=== PATIENT | female | born 1980 | race Caucasian/White ===

== ENCOUNTER 2019-05-19 16:31 | Emergency (ER) | payer OTHER ==
[~2019-05-19] VITALS: Ht 152.4 cm; Wt 69.1 kg
[2019-05-19] MEDS ORDERED: KETOROLAC TROMETHAMINE 10 MG TABLET PO STA (16:57)
[2019-05-19] MEDS ORDERED: MAG HYDROX/ALUMINUM HYD/SIMETH 30 ML ORAL.SUSP PO STA (16:57)
[2019-05-19] MEDS ORDERED: LIDOCAINE 2% VISCOUS 15 ML SOLUTION. SWSW STA (16:57)
[2019-05-19 16:59] VITALS: BP 118/77
[2019-05-19] MEDS ORDERED: CLIN150C14 PO (17:05)
--- NOTE | 2019-05-19 17:06 | PHYS DOC ---
Adult General Chief Complaint Chief Complaint: FACE PROBLEM [facility] HPI Patient is a 38 year old female who presents with left-sided face pain has been ongoing since yesterday. The patient states that she's been having tooth pain periodically on her upper teeth. Patient rates her pain as 8 out of 10 in pramod rity sharp. The patient denies any medical history. Denies any fevers. Complete ROS were reviewed and found to be within normal limits, except as documented in the HPI Physical Exam Physical Exam Constitutional: Well developed, well nourished, no acute distress, non-toxic appearance. [] HENT: Normocephalic, atraumatic, bilateral external ears normal, oropharynx moist, no oral exudates, nose normal. cracked teeth with erythema at #12-13. Eyes: , EOMI, conjunctiva normal, no discharge. [] Skin: Warm, dry, no erythema, mild erythema to face. Neurologic: Alert and oriented X 3, normal motor function, normal sensory functi on, no focal deficits noted. [] Psychologic: Affect normal, judgement normal, mood normal. [] EKG EKG [] Radiology/Procedures Radiology/Procedures [] Course & Med Decision Making Course & Med Decision Making Pertinent Labs and Imaging studies reviewed. (See chart for details) The patient has facial cellulitis from a dental infection. Discussed with the patient that she needs to see a dentist. Will place patient on Clindamycin. Discussed with the patient that if worsens and becomes an orbital cellulitis to return to ED. Discussed precautions. Will also give pain medication in ER. Dragon Disclaimer Dragon Disclaimer This electronic medical record was generated, in whole or in part, using a voice recognition dictation system. Departure Departure Impression: Primary Impression: Facial cellulitis Disposition: 01 HOME, SELF-CARE Condition: STABLE Patient Instructions: Cellulitis Additional Instructions: Thank you for visiting [facility]. We appreciate you trusting us with your care. If any additional problems come up don't hesitate to return to visit us. Please follow up with your primary care provider so they can plan additional care if needed and know about the problem that you had. If symptoms worsen come back to the Emergency Department. Any concerning symptoms that start such as chest pain, shortness of air, weakness or numbness on one side of the body, running high fevers or any other concerning symptoms return to the ER. You have been prescribed an antibiotic today to help fight your infection. Please take all of the antibiotic as directed. If after 48 hours the infection is not improving, please return for more care. If the infection worsens, return to ER for additional care. If the cellulitis worsens and starts involving your left eye please return to the ER. Scripts Clindamycin Hcl (CLINDAMYCIN HCL) 150 Mg Capsule 450 MG PO TID for 10 Days, #90 CAP Prov: RADHA HURST APRN 05/19/19 RADHA HURST APRN May 19, 2019 17:06
== END 2019-05-19 17:28 | disposition home or self-care (01) ==
LOC: ER 16:31
DX: L03.211 Cellulitis of face (principal); K08.89 Other specified disorders of teeth and supporting structures; L53.9 Erythematous condition, unspecified
CPT/HCPCS: 99284